=== PATIENT | male | born 1945 ===

== ENCOUNTER 2019-02-28 10:27 | Day surgery (SDC) | payer OTHER ==
[~2019-02-28] VITALS: Ht 172.7 cm; Wt 101.0 kg
== END 2019-02-28 12:00 | disposition home or self-care (01) ==
LOC: ORSCSDS 10:27
PROVIDERS: Anesthesiology
PROC: 3E0R33Z Introduction of Anti-inflammatory into Spinal Canal, Percutaneous Approach (ICD-10-PCS; principal; 2019-02-28 12:00)
DX: M51.16 Intervertebral disc disorders with radiculopathy, lumbar region (principal); E10.8 Type 1 diabetes mellitus with unspecified complications; E66.01 Morbid (severe) obesity due to excess calories; Z87.891 Personal history of nicotine dependence; Z68.34 Body mass index [BMI] 34.0-34.9, adult; Z79.899 Other long term (current) drug therapy
CPT/HCPCS: J1040

== ENCOUNTER 2021-03-27 16:21 | Emergency (ER) | payer OTHER ==
[~2021-03-27] VITALS: Ht 182.9 cm; Wt 88.5 kg
[2021-03-27] MEDS ORDERED: METF500 PO (19:46)
== END 2021-03-27 21:07 | disposition home or self-care (01) ==
LOC: ER 16:21
DX: M54.16 Radiculopathy, lumbar region (principal); E11.9 Type 2 diabetes mellitus without complications; Z79.84 Long term (current) use of oral hypoglycemic drugs
CPT/HCPCS: 70450; 72146; 99284-25; A9270